=== PATIENT | female | born 1955 | race Two or more races ===

== ENCOUNTER 2020-07-06 12:15 | Inpatient (IN) | payer OTHER ==
[~2020-07-06] VITALS: Ht 147.3 cm; Wt 77.1 kg
[2020-07-07] MEDS ORDERED: LOSARTAN POTASS50 MG PO (08:32)
[2020-07-07] MEDS ORDERED: NORVASC2.5 M1 PO (08:32)
[2020-07-07] MEDS ORDERED: CRESTOR5 MG PO (08:32)
[2020-07-07] MEDS ORDERED: LUMIGAN2.5 M1 OP (08:33)
[2020-07-07] MEDS ORDERED: TIMOLOL MALEATE5 M4 OP (08:33)
[2020-07-07] MEDS ORDERED: FOSAMAX70 MG PO (08:33)
[2020-07-07] MEDS ORDERED: KETOROLAC TROMET5 ML OP (08:34)
[2020-07-14] MEDS ORDERED: NORVASC2.5 MG (14:09)
[2020-07-14] MEDS ORDERED: ROSUVASTATIN CA10 MG (14:09)
[2020-07-14] MEDS ORDERED: ALENDRONATE SOD70 MG (14:10)
[2020-07-14] MEDS ORDERED: LUMIGAN2.5 M1 (14:10)
[2020-07-14] MEDS ORDERED: KETO10TA2 (14:11)
[2020-07-14] MEDS ORDERED: KETOROLAC TROMET5 M1 (14:12)
== END 2020-07-17 11:53 | disposition home or self-care (01) | DRG 750 ==
LOC: SURH 07-07 12:15 → O/R 07-14 08:29 → SURH 07-14 12:15
PROVIDERS: ADMIT Specialist; ATTEND Specialist
PROC: 07BH0ZX Excision of Right Inguinal Lymphatic, Open Approach, Diagnostic (ICD-10-PCS; 2020-07-14)
PROC: 07BJ0ZX Excision of Left Inguinal Lymphatic, Open Approach, Diagnostic (ICD-10-PCS; principal; 2020-07-14 07:00)
DX: C51.9 Malignant neoplasm of vulva, unspecified (principal); I10 Essential (primary) hypertension; E11.9 Type 2 diabetes mellitus without complications; M81.0 Age-related osteoporosis without current pathological fracture

== ENCOUNTER 2021-09-05 23:25 | Emergency (ER) | payer OTHER ==
[~2021-09-05] VITALS: Ht 147.3 cm; Wt 77.1 kg
[~2021-09-05 23:25] MED LIST: ALENDRONATE SOD70 MG; CRESTOR5 MG PO; ECOTRIN81 MG PO; FOSAMAX70 MG PO; KETO10TA2; KETOROLAC TROMET5 M1; KETOROLAC TROMET5 ML OP; LOSARTAN POTASS50 MG PO; LUMIGAN2.5 M1; LUMIGAN2.5 M1 OP; NORVASC2.5 M1 PO; NORVASC2.5 MG; ROSUVASTATIN CA10 MG; TIMOLOL MALEATE5 M4 OP
[2021-09-06] MEDS ORDERED: NORFLEX100MG PO (01:25)
[2021-09-06] MEDS ORDERED: KETO10TA2 PO (01:25)
== END 2021-09-06 01:32 | disposition home or self-care (01) ==
LOC: ER 23:25
DX: M54.89 Other dorsalgia (principal); Z79.82 Long term (current) use of aspirin; Z88.2 Allergy status to sulfonamides

== ENCOUNTER 2021-10-10 15:38 | Inpatient (IN) | payer OTHER ==
[~2021-10-10] VITALS: Ht 147.3 cm; Wt 77.1 kg
[~2021-10-10 15:38] MED LIST changes: +KETO10TA2 PO; +NORFLEX100MG PO
[2021-10-11] MEDS ORDERED: PANTOPRAZOLE SO40 MG (11:19)
[2021-10-11] MEDS ORDERED: AMITRIPTYLINE H10 MG (11:19)
[2021-10-11] MEDS ORDERED: FAMOTIDINE40 MG (11:19)
[2021-10-11] MEDS ORDERED: GABAPENTIN300 M2 (11:20)
[2021-10-11] MEDS ORDERED: DICLOFENAC SOD100 MG (11:20)
[2021-10-11] MEDS ORDERED: ALENDRONATE SOD70 MG (11:20)
== END 2021-10-19 22:31 | disposition home or self-care (01) | DRG 329 ==
LOC: ER 15:38 → SURG 10-11 00:36 → SURH 10-11 00:36 → SURG 10-11 07:52
PROVIDERS: Surgery; ADMIT Internal Medicine; ATTEND Internal Medicine
PROC: BW21ZZZ Computerized Tomography (CT Scan) of Abdomen and Pelvis (ICD-10-PCS; 2021-10-10)
PROC: BW24ZZZ Computerized Tomography (CT Scan) of Chest and Abdomen (ICD-10-PCS; 2021-10-10)
PROC: 4A12X4Z Monitoring of Cardiac Electrical Activity, External Approach (ICD-10-PCS; 2021-10-11)
PROC: 0DBM0ZZ Excision of Descending Colon, Open Approach (ICD-10-PCS; 2021-10-12)
PROC: 0D1M0Z4 Bypass Descending Colon to Cutaneous, Open Approach (ICD-10-PCS; principal; 2021-10-12 18:00)
PROC: 3E0F7GC Introduction of Other Therapeutic Substance into Respiratory Tract, Via Natural or Artificial Opening (ICD-10-PCS; 2021-10-13)
DX: K57.20 Diverticulitis of large intestine with perforation and abscess without bleeding (principal); K65.9 Peritonitis, unspecified; D72.828 Other elevated white blood cell count; E87.6 Hypokalemia; M41.86 Other forms of scoliosis, lumbar region; M51.36 Other intervertebral disc degeneration, lumbar region; R11.2 Nausea with vomiting, unspecified; I10 Essential (primary) hypertension; Z88.2 Allergy status to sulfonamides; Z85.44 Personal history of malignant neoplasm of other female genital organs; Z20.822 Contact with and (suspected) exposure to COVID-19

== ENCOUNTER 2021-11-08 09:34 | Emergency (ER) | payer OTHER ==
[~2021-11-08] VITALS: Ht 147.3 cm; Wt 77.1 kg
[~2021-11-08 09:34] MED LIST changes: +AMITRIPTYLINE H10 MG; +DICLOFENAC SOD100 MG; +FAMOTIDINE40 MG; +GABAPENTIN300 M2; +PANTOPRAZOLE SO40 MG
== END 2021-11-08 17:02 | disposition home or self-care (01) ==
LOC: ER 09:34
DX: K94.09 Other complications of colostomy (principal); I10 Essential (primary) hypertension; Z88.2 Allergy status to sulfonamides; I20.9 Angina pectoris, unspecified; T21.42XA Corrosion of unspecified degree of abdominal wall, initial encounter